=== PATIENT | female | born 1930 | race Caucasian/White ===

== ENCOUNTER 2019-10-10 22:06 | Inpatient (IN) | payer OTHER ==
[~2019-10-10] VITALS: Ht 167.6 cm; Wt 42.6 kg
[2019-10-10 22:15] VITALS: BP 79/42
--- NOTE | 2019-10-10 22:18 | NUR ---
89 YO BIBA FROM [facility] OF "DIAPER FULL OF BLOOD." BOWEL SOUNDS HYPERACTIVE THROUGHOUT. S1S2 HEARD. LUNG SOUNDS CLEAR. RESPIRATIONS ARE EVEN AND UNLABORED. CAP REFILL <3. PERIPHERAL PULSES FELT IN ALL EXTREMETIES. RESPONSIVE BUT UNABLE TO MAKE NEEDS KNOWN. GCS 9. PTS BASELINE IS NONVERBAL PER EMS REPORT. UPON ASSESSMENT, MODERATE BRIGHT RED BLOOD WITH CLOTS FOUND IN DIAPER. PER EMT REPORT NO FEVER, COUGH, SOB. PT PLACED ON MONOTYPE KEYBOARD OPERATOR. BED LOCKED AND IN LOWEST POSITION. SIDE RAILS X2. MED HX: CVA, ALZHEIMERS, DEMENTIA, HYPERLIPIDEMIA, DEPRESSION, ATHEROSCLEROTIC HEART DISEASE, AORTOCORONARY BYPASS GRAFT, LEFT BREAST CANCER, FALIS RX: TRAMADOL, DOK, ACETAMINOPHEN/CODEINE, SEROQUEL, MIRTAZAPINE, DIVALPROEX, MORPHINE SULFATE, IPRATROPIUM/ALBUTERO, MIRALAX, LACTULOSE, ASPIRIN NKA
--- NOTE | 2019-10-10 22:30 | NUR ---
SPOKE TO PTS SON CHRIS ABOUT DNR ORDER. THE PTS SON STATES SHE HAS A DNR ORDER ON FILE AT [facility] WHERE THE PT RESIDES. ERMD MADE AWARE. WILL CALL THE FACILITY TO OBTAIN DNR. CHRIS:
--- NOTE | 2019-10-10 22:34 | NUR ---
LAB AT BEDSIDE.
[2019-10-10] MEDS ORDERED: NACL 0.9% 500 ML IV ONE (22:55)
[2019-10-10 23:01] LABS: BASOPHILS % (AUTO) 0.4 % (0.0-2.0); EOSINOPHILS # (AUTO) 0.1 K/uL (0-0.4); HEMATOCRIT 39.3 % (36-48); HEMOGLOBIN 13.1 g/dL (12.0-16.0); LYMPHOCYTES # (AUTO) 2.2 K/uL (2.5-16.5); LYMPHOCYTES % (AUTO) 24.1 % (20.5-51.1); MEAN CORPUSCULAR HEMOGLOBIN 31 pg (27-31); MEAN CORPUSCULAR HGB CONC 33 g/dL (33-37); MEAN CORPUSCULAR VOLUME 93.7 fL (80-94); MONOCYTES # (AUTO) 0.5 K/uL (0.8-1.0); MONOCYTES % (AUTO) 5.7 % (1.7-9.3); NEUTROPHILS # (AUTO) 6.4 K/uL (1.8-7.7); NEUTROPHILS % (AUTO) 68.8 % (42.2-75.2); PLATELET COUNT (AUTO) 215 K/uL (140-450); RED BLOOD CELL COUNT(AUTO) 4.19 MIL/uL (4.20-5.40); RED CELL DISTRIBUTION WIDTH 13.6 % (11.6-13.7); WHITE BLOOD COUNT (AUTO) 9.3 K/uL (4.8-10.8)
[2019-10-10 23:14] LABS: ALBUMIN 2.9 g/dL (3.4-5.0); ANION GAP 11.3 (8-16); ASPARTATE AMINOTRANSFERASE 22 U/L (15-37); CARBON DIOXIDE 28.8 mmol/L (21-32); CHLORIDE 97 mmol/L (98-107); GLUCOSE 117 mg/dL (74-106); POTASSIUM 4.1 mmol/L (3.5-5.1); PROTHROMBIN TIME 9.9 secs (10.8-13.4); SODIUM SERUM 133 mmol/L (136-145); TOTAL BILIRUBIN 0.3 mg/dL (0.0-1.0); UREA NITROGEN, BLOOD 18 mg/dL (7-18)
--- NOTE | 2019-10-10 23:45 | NUR ---
PT PLACED ON 2L NC FOR DROP IN O2 SATURATION. O2 SAT DROPPED TO 88%. AFTER NC APPLICATION O2 SAT IMPROVED TO 100%.
--- NOTE | 2019-10-10 23:53 | NUR ---
PT RESTING COMFORTABLY IN BED. VISIBLE RISE AND FALL OF CHEST. REPIRATIONS EVEN AND UNLABORED. BED LOCKED AND IN LOWEST POSITION.
--- NOTE | 2019-10-11 01:00 | NUR ---
PT RESTING COMFORTABLY IN BED. NO DISTRESS NOTED. VIABLE RISE AND FALL OF CHEST. VSS.
[2019-10-11] MEDS ORDERED: ACETAMINOPHEN 325 MG TAB PO PRN (01:50)
[2019-10-11] MEDS ORDERED: HYDROcodone/APAP 5/325 MG 1 TAB TAB PO PRN (01:50)
[2019-10-11] MEDS ORDERED: MORPHINE SULFATE 2 MG/ML SYR IVP PRN ×2 (01:50→03:00)
[2019-10-11] MEDS ORDERED: ONDANSETRON 4 MG/2 ML VIAL IM/IVP PRN (01:50)
[2019-10-11] MEDS ORDERED: DOCUSATE SODIUM 100 MG GELCAP PO PRN (01:50)
[2019-10-11 01:58] LABS: HEMATOCRIT 35.7 % (36-48); HEMOGLOBIN 11.9 g/dL (12.0-16.0)
[2019-10-11] MEDS ORDERED: MSCON15 PO (01:59)
[2019-10-11] MEDS ORDERED: ALBU3SOL83 IH (02:01)
[2019-10-11] MEDS ORDERED: QUET25TA PO ×2 (02:02→03:08)
[2019-10-11] MEDS ORDERED: MIRT30TA PO (02:04)
[2019-10-11] MEDS ORDERED: DIVA125E11 PO (02:05)
[2019-10-11] MEDS ORDERED: DOCU100C16 PO (02:15)
[2019-10-11] MEDS ORDERED: ACET-503 PO (02:15)
[2019-10-11] MEDS ORDERED: TRAM50TA1 PO (02:15)
[2019-10-11] MEDS ORDERED: ASPI-1822 PO (02:15)
[2019-10-11] MEDS ORDERED: POLY17PD PO (02:15)
[2019-10-11] MEDS ORDERED: [UNRECOGNIZED DRUG - CODE] RC (02:15)
[2019-10-11] MEDS ORDERED: LACT10SO1 PO (02:15)
--- NOTE | 2019-10-11 02:30 | NUR ---
DURING BREIF CHANGE MODERATE AMOUNT OF BRIGHT RED BLOOD WITH CLOTS FOUND.
[2019-10-11 02:43] LABS: MAGNESIUM 2.1 mg/dL (1.8-2.4); PHOSPHORUS 4.3 mg/dL (2.5-4.9); THYROID STIMULATING HORMONE 4.16 uIU/mL (0.34-3.74)
[2019-10-11 02:45] VITALS: BP 104/61
--- NOTE | 2019-10-11 02:45 | NUR ---
Patient will be admitted to care of [facility]. Admited to [facility]. Will go to room 110B. Belongings list completed. Report to LITZY ANDERSON. RN MADE AWARE OF MODERATE AMOUNT OF BRIGHT RED BLOOD NOTED DURING LAST BREIF CHANGE. TRANSFER OF CARE AT THIS TIME.
--- NOTE | 2019-10-11 02:45 | NUR ---
ADMITTED A 89F FROM ER. CAME BY LAURA DUE TO ACTIVE RECTAL BLEEDING. ON TELE MONITOR . OBSERVATION ONLY. PT IS BEDBOUND. WITH GENERAL WEAKNESS . O22L/NC. SAT 98%. NO S/S OF ANY DISCOMFORT NOR DISTRESS NOTED. WITH OLD SCAB ON THE RT PLANTAR AREA. SACRUM WITH REDNESS. MD TO ORDER CREAM. REPOSITIONED FOR COMFORT. FREQ ROUNDS NEEDED. BED ON LOWEST POSITION. SIDE RAILS UP X2 . CALL LIGHT PLACED WITHIN EASY REACH. WILL FOLLOW UP ADMIT ORDERS.
--- NOTE | 2019-10-11 02:55 | NUR ---
DR. YEPEZ CAME AND SEEN PTVielka CASTILLO SAID TO HOLD THE 2 UNITS PRBC ORDERED FOR NOW.
[2019-10-11] MEDS ORDERED: BISACODYL 10 MG SUPP RC PRN (03:00)
[2019-10-11] MEDS ORDERED: traMADol 50 MG TAB PO PRN (03:00)
[2019-10-11] MEDS ORDERED: ALBUTEROL SULFATE/IPRATROPIU 3 ML SOL IH SCH (03:00)
[2019-10-11] MEDS ORDERED: LORazepam 0.5 MG TAB PO PRN (03:00)
[2019-10-11] MEDS ORDERED: LORA2SOL69 PO (03:08)
[2019-10-11] MEDS ORDERED: BISA-213 RC (03:08)
[2019-10-11] MEDS: NACL 0.9% 1,000 ML IV SCH (03:10)
[2019-10-11] MEDS ORDERED: HYDRAGUARD CREAM TP PRN (03:15)
[2019-10-11 04:15] VITALS: BP 125/53
--- NOTE | 2019-10-11 05:30 | NUR ---
HAD SOME RECTAL BLEEDING IN SMALL AMOUNT. CLEANED AND KEPT DRY.
--- NOTE | 2019-10-11 07:23 | NUR ---
ENDORSED PT IN STABLE CONDITION TO AM NURSE.
--- NOTE | 2019-10-11 07:25 | NUR ---
RECEIVED REPORT FROM REGIONAL BUSINESS DEVELOPMENT MANAGER NURSE, FOR CONTINUITY OF CARE. PT IS LYING IN BED AWAKE AND RESTING, A&OX1. RESPIRATIONS ARE EVEN AND UNLABORED, BREATHING TO 2L NC. SACRAL REDNESS NOTED. TELE MONITOR ATTACHED. REVIEWED PLAN OF CARE WITH PT. SAFETY MEASURES IN PLACE, BED IN LOW POSITION, CALL LIGHT WITHIN REACH. NO DISTRESS NOTED. WILL CONTINUE TO MONITOR.
[2019-10-11 07:40] LABS: BASOPHILS % (AUTO) 0.5 % (0.0-2.0); EOSINOPHILS # (AUTO) 0.1 K/uL (0-0.4); EOSINOPHILS % (AUTO) 0.9 % (0.0-4.0); HEMOGLOBIN 11.9 g/dL (12.0-16.0); LYMPHOCYTES # (AUTO) 2.2 K/uL (2.5-16.5); LYMPHOCYTES % (AUTO) 23.5 % (20.5-51.1); MEAN CORPUSCULAR HEMOGLOBIN 31 pg (27-31); MEAN CORPUSCULAR HGB CONC 33 g/dL (33-37); MEAN CORPUSCULAR VOLUME 93.4 fL (80-94); MONOCYTES # (AUTO) 0.6 K/uL (0.8-1.0); MONOCYTES % (AUTO) 6.6 % (1.7-9.3); NEUTROPHILS # (AUTO) 6.3 K/uL (1.8-7.7); NEUTROPHILS % (AUTO) 68.5 % (42.2-75.2); PLATELET COUNT (AUTO) 204 K/uL (140-450); RED BLOOD CELL COUNT(AUTO) 3.86 MIL/uL (4.20-5.40); WHITE BLOOD COUNT (AUTO) 9.2 K/uL (4.8-10.8)
[2019-10-11 08:00] VITALS: BP 134/83
[2019-10-11] MEDS ORDERED: POLYETHYLENE GLYCOL 17 GM/PKT PO SCH ×2 (08:00→09:00)
[2019-10-11] MEDS ORDERED: ASPIRIN 81 MG TAB.CHEW PO SCH (08:00)
--- NOTE | 2019-10-11 08:45 | NUR ---
ASSISTED DR CHRISTOPHER AT BEDSIDE TO PERFORM OCCULT BLOOD STOOL TEST. PER DR CHRISTOPHER, PT IS TO BE PUT ON A CLEAR LIQUID DIET, NPO AT MIDNIGHT, FOR COLONOSCOPY TOMORROW.
[2019-10-11 08:47] LABS: CHOL/HDL RATIO 4.3 (1-4.5)
[2019-10-11] MEDS ORDERED: SENNA 8.6 MG TAB PO SCH (09:00)
[2019-10-11] MEDS ORDERED: LACTULOSE 20 GM/30 ML UDC PO SCH ×3 (09:00→10:56)
[2019-10-11] MEDS ORDERED: MAGNESIUM CITRATE 300 ML BTL PO SCH ×2 (09:00→21:00)
[2019-10-11 09:06] LABS: ANION GAP 11.1 (8-16); CARBON DIOXIDE 29.5 mmol/L (21-32); CHLORIDE 103 mmol/L (98-107); CREATININE 0.8 mg/dL (0.6-1.3); GLUCOSE 94 mg/dL (74-106); POTASSIUM 4.6 mmol/L (3.5-5.1); SODIUM SERUM 139 mmol/L (136-145); UREA NITROGEN, BLOOD 15 mg/dL (7-18)
--- NOTE | 2019-10-11 09:09 | NUR ---
PATIENT HAS BEEN SCREENED AND CATEGORIZED HIGH NUTRITION RISK. PATIENT WILL BE SEEN WITHIN 1-2 DAYS OF ADMISSION. 10/11/19-10/12/[address]
--- NOTE | 2019-10-11 10:05 | NUR ---
Park Warden Note: Basic Screen: Yes High Risk DC Screen [place]: CHRIS LOPEZ Home Relationship: SON/POA Pre-Admission Living Arrangements: Other Other: [facility] Prior ADL Total/Dependent Current Home Health Name/Tel: N/A Current DME/02 Name/Tel: [facility] Current Hospice Name/Tel: [facility] Current Dialysis Name/Tel: N/A Healthcare Decision Maker: Next of Kin Other: CHRIS LOPEZ Advance Directive No Physician Orders for Life Sustaining Treatment Form No Patient/Family Have Educational Needs No Information Taught: Advance Directive Discipline: Case Mgt/Social Svcs Tentative Discharge Plan/Destination: No Needs Identified Will require assistance post discharge: No Referred to Plaster Helper: No Tentative Discharge Plan Summary: Patient is an 89-year-old female admitted for gastro intestinal bleed. Patient has PMHX of CVA, dementia, alzheimer's HLD, and CAD. Patient was admitted from [facility]. SHEA Chaidez from [facility] [phone]. Per Kaylynn, patient has been a resident at the facility for six years. Kaylynn stated that patient's family is not involved in her care, although they do get frequent reports given to them. Patient's POA is son Chris Lopez. Kaylynn stated that patient is not alert/oriented at baseline and is limited to yes/no answers. Kaylynn stated that patient's dementia is advanced and requires total assistance with ADLs. Kaylynn reported that patient is nonverbal and inquired about status of patient. SHEA provided patient nurses station's phone number and SAMUEL Chahal's contact information for medical questions asked. Tentative discharge plan is for patient to return to [facility]. No further needs identified. Signature: MARIBEL Urbano Date: Oct 11, 2019 Time: 10:02
[2019-10-11] MEDS ORDERED: ALBUTEROL SULFATE/IPRATROPIU 3 ML SOL IH PRN (10:55)
[2019-10-11 12:00] VITALS: BP 128/69
[2019-10-11] MEDS: DIVALPROEX SPRINKLES 125 MG CAPDR PO SCH ×2 (12:21→20:19)
[2019-10-11] MEDS: PANTOPRAZOLE 40 MG INJ VIAL IVP SCH (12:26)
[2019-10-11] MEDS: QUEtiapine FUMARATE 25 MG TAB PO SCH ×2 (12:28→20:19)
[2019-10-11] MEDS: HYDRAGUARD CREAM TP SCH (13:00)
[2019-10-11 13:21] LABS: BASOPHILS % (AUTO) 0.3 % (0.0-2.0); EOSINOPHILS # (AUTO) 0.1 K/uL (0-0.4); EOSINOPHILS % (AUTO) 0.8 % (0.0-4.0); HEMATOCRIT 37.9 % (36-48); HEMOGLOBIN 12.7 g/dL (12.0-16.0); LYMPHOCYTES # (AUTO) 1.8 K/uL (2.5-16.5); LYMPHOCYTES % (AUTO) 19.5 % (20.5-51.1); MEAN CORPUSCULAR HEMOGLOBIN 31 pg (27-31); MEAN CORPUSCULAR HGB CONC 34 g/dL (33-37); MEAN CORPUSCULAR VOLUME 93.6 fL (80-94); MONOCYTES # (AUTO) 0.6 K/uL (0.8-1.0); MONOCYTES % (AUTO) 6.6 % (1.7-9.3); NEUTROPHILS # (AUTO) 6.9 K/uL (1.8-7.7); NEUTROPHILS % (AUTO) 72.8 % (42.2-75.2); PLATELET COUNT (AUTO) 208 K/uL (140-450); RED BLOOD CELL COUNT(AUTO) 4.05 MIL/uL (4.20-5.40); RED CELL DISTRIBUTION WIDTH 13.7 % (11.6-13.7); WHITE BLOOD COUNT (AUTO) 9.5 K/uL (4.8-10.8)
--- NOTE | 2019-10-11 13:27 | NUR ---
10/11/19 RD INITIAL ASSESSMENT COMPLETED PLEASE REFER TO NUTRITION ASSESSMENT UNDER CARE ACTIVITY FOR ESTIMATED NUTRITIONAL NEEDS. 1. CONTINUE CLEAR LIQUID DIET WITH ENSURE CLEAR TID 2. RECOMMEND SWALLOW EVALUATION FOR HISTORY OF DYSPHAGIA 3. ADVANCE DIET PER EXTERNAL RELATIONS DIRECTOR RECOMMENDATIONS WHEN PATIENT IS MEDICALLY CLEARED 4. RECOMMEND ENSURE TID 5. RD TO FOLLOW-UP 2-3 DAYS, HIGH RISK DOMINIQUE CALVO RD
[2019-10-11 16:00] VITALS: BP 122/72
--- NOTE | 2019-10-11 16:26 | NUR ---
ST CLARIFICATION NOTE Pt HAS FUNCTIONAL SWALLOW FOR MSFC FOOD AND THIN LIQUIDS W/O DIFFICULTY OR OVERT S/S OF ASPIRATION OR PENETRATION NOTED. AP TRANSFER AND SWALLOW RESPONSE WAS TIMELY W/ FULL LARYNGEAL ELEVATION AND EXCURSION. MILD RESIDUAL ON RIGHT NOTED. ABLE TO CLEAR W/ MULTIPLE SWALLOWS AND ALTERNATION OF FOOD/LIQUIDS. DIFFICULTY W/ MASTICATION OF MSC D/T DECREASED DENTITION. REC MSFC/THIN DIET, ASPIRATION PRECAUTIONS, ORAL CARE, AND FEEDER. ADDITIONAL ST FOR SWALLOW NOT INDICATED AT THIS TIME.
[2019-10-11] MEDS: LACTULOSE 20 GM/30 ML UDC PO SCH ×2 (17:00→20:18)
--- NOTE | 2019-10-11 19:25 | NUR ---
ENDORSED TO SUPPLY CHAIN DESIGN MANAGER NURSE FOR CONTINUITY OF CARE. PT IS IN STABLE CONDITION.
--- NOTE | 2019-10-11 19:26 | NUR ---
RECEIVED PT IN STABLE CONDITION FROM AM NURSE. ON TELE MONITOR. BEDREST. WITH NO S/S OF ANY DISTRESS NOR DISCOMFORT NOTED. WITH IVF INFUSING WELL ON THE RT HAND# 22. CLEAR AND PATENT. .PLAN OF CARE DISCUSSED BUT PT HAS DEMENTIA. NEED REINFORCEMENT. BED ON LOW POSITION. FREQ ROUNDS NEEDED. SIDE RAILS UP X2. CALL LIGHT WITHIN REACH AND BED ALARM ON. WILL CONTINUE TO MONITOR.
[2019-10-11 20:00] VITALS: BP 115/71
[2019-10-11] MEDS ORDERED: CRUSHER, PILL MC ONE (20:15)
--- NOTE | 2019-10-11 20:16 | NUR ---
TEMP 100.5 [id number]. COOLING MEASURES DONE. TYLENOL 650 MG PO GIVEN. WILL CONTINUE TO MONITOR.
[2019-10-11] MEDS: POLYETHYLENE GLYCOL 17 GM/PKT PO SCH (20:18)
[2019-10-11] MEDS: SENNA 8.6 MG TAB PO SCH (20:18)
--- NOTE | 2019-10-11 20:30 | NUR ---
PT ABLE TO TAKE SOME OF THE STOOL SOFTENER ORDERED. STILL WORKING ON MIRALAX AND CITROMA.
[2019-10-11] MEDS ORDERED: MIRTAZAPINE 15 MG TAB PO SCH (21:00)
--- NOTE | 2019-10-11 21:30 | NUR ---
TEMP RECHECKED RESULT 98.6
--- NOTE | 2019-10-11 23:00 | NUR ---
PT SACRAL AREA WITH INCONTINENT DERMATITIS AND BOTH BUTTOCKS WITH OPEN WOUND. WILL TAKE PICTURE .BUT NO COMPARISON WHEN PT ADMITTED 10/11/19 FROM ER. ER NURSE SAID SHE TOOK PICTURE BUT NO PICTURE FOUND . WILL FOLLOW UP .
--- NOTE | 2019-10-11 23:30 | NUR ---
PT SLOWLY FINISHED CITROMA PO . TOLERATED WELL. PT TO BE NPO AFTER MN FOR COLONOSCOPY IN AM.
[2019-10-12] VITALS: BP 123/64
[2019-10-12] MEDS: HYDRAGUARD CREAM TP SCH ×2 (00:17→12:53)
--- NOTE | 2019-10-12 00:30 | NUR ---
REPOSITIONED FOR COMFORT. MOUTH CARE DONE.
--- NOTE | 2019-10-12 01:30 | NUR ---
PT HAD X2 LOOSE BM , STILL WITH BLOOD. CLEANED AND KEPT DRY,APPLIED HYDRA GUARD ON SACRAL AND BUTTOCKS INCONTINENT DERMATITIS. LT BUTTOCKS ALREADY OPEN SKIN.
[2019-10-12] MEDS: NACL 0.9% 1,000 ML IV SCH (01:47)
--- NOTE | 2019-10-12 03:20 | NUR ---
MADE ROUNDS. VITAL SIGNS TAKEN. STABLE.
[2019-10-12 04:05] VITALS: BP 121/51
[2019-10-12] MEDS ORDERED: Z-GUARD PASTE TP PRN (05:30)
--- NOTE | 2019-10-12 05:30 | NUR ---
TOOK PICTURE OF SACRAL AND BUTTOCKS INCONTINENT DERMATITIS/OPEN WOUND. SHOWED TO DR. OCONNOR. ORDERED Z GUARD AND WOUND CARE CONSULT.
--- NOTE | 2019-10-12 06:21 | NUR ---
STOOL OUTPUT STILL DIRTY. PAGED DR. JERONIMO.WAITING FOR CALL BACK.
--- NOTE | 2019-10-12 07:05 | NUR ---
STILL WAITING FOR DR. Jama NEWBY TO CALLBACK.AND THEN ENDORSED PT IN STABLE CONDITION TO AM NURSE FOR CONTINUITY OF CARE.
--- NOTE | 2019-10-12 07:10 | NUR ---
RECEIVED BEDSIDE REPORT FROM NIGHTSHIFT NURSE. PT RESTING IN BED. FLACC 0. RESPIRATIONS EVEN AND UNLABORED WITH NO SOB OR RESPIRATORY DISTRESS. SKIN WARM AND DRY TO TOUCH. IV SITE IN RIGHT HAND 22G IS CLEAN, DRY, AND INTACT. SAFETY MEASURES IN PLACE. WILL CONTINUE TO MONITOR
[2019-10-12 07:35] LABS: BASOPHILS % (AUTO) 0.4 % (0.0-2.0); EOSINOPHILS # (AUTO) 0.1 K/uL (0-0.4); EOSINOPHILS % (AUTO) 0.9 % (0.0-4.0); HEMATOCRIT 30.1 % (36-48); LYMPHOCYTES # (AUTO) 2.4 K/uL (2.5-16.5); LYMPHOCYTES % (AUTO) 25.8 % (20.5-51.1); MEAN CORPUSCULAR HEMOGLOBIN 31 pg (27-31); MEAN CORPUSCULAR HGB CONC 33 g/dL (33-37); MEAN CORPUSCULAR VOLUME 93.4 fL (80-94); MONOCYTES # (AUTO) 0.7 K/uL (0.8-1.0); MONOCYTES % (AUTO) 7.6 % (1.7-9.3); NEUTROPHILS % (AUTO) 65.3 % (42.2-75.2); PLATELET COUNT (AUTO) 179 K/uL (140-450); RED BLOOD CELL COUNT(AUTO) 3.22 MIL/uL (4.20-5.40); WHITE BLOOD COUNT (AUTO) 9.3 K/uL (4.8-10.8)
[2019-10-12 08:00] VITALS: BP 112/56
[2019-10-12 08:05] LABS: MAGNESIUM 2.9 mg/dL (1.8-2.4)
[2019-10-12 08:10] LABS: ANION GAP 11.4 (8-16); CARBON DIOXIDE 26.9 mmol/L (21-32); CHLORIDE 107 mmol/L (98-107); CREATININE 0.8 mg/dL (0.6-1.3); GLUCOSE 100 mg/dL (74-106); POTASSIUM 3.3 mmol/L (3.5-5.1); SODIUM SERUM 142 mmol/L (136-145); UREA NITROGEN, BLOOD 13 mg/dL (7-18)
[2019-10-12] MEDS ORDERED: fentaNYL 0.05 MG/ML VIAL ONE (08:40)
[2019-10-12] MEDS ORDERED: diphenhydrAMINE 50 MG/ML VIAL ONE (08:40)
[2019-10-12] MEDS ORDERED: MIDAZOLAM 2 MG/2 ML VIAL ONE (08:41)
[2019-10-12] MEDS: PANTOPRAZOLE 40 MG INJ VIAL IVP SCH (09:00)
[2019-10-12] MEDS: QUEtiapine FUMARATE 25 MG TAB PO SCH (09:00)
[2019-10-12] MEDS: POLYETHYLENE GLYCOL 17 GM/PKT PO SCH (09:00)
[2019-10-12] MEDS: SENNA 8.6 MG TAB PO SCH (09:00)
[2019-10-12] MEDS: DIVALPROEX SPRINKLES 125 MG CAPDR PO SCH (09:00)
[2019-10-12] MEDS: LACTULOSE 20 GM/30 ML UDC PO SCH (09:00)
--- NOTE | 2019-10-12 09:00 | NUR ---
OR CAME AND TOOK PATIENT TO SURGERY. PRE-OP CHECKLIST IS COMPLETE. SAFETY MEASURES IN PLACE. WILL CONTINUE TO MONITOR
--- NOTE | 2019-10-12 09:44 | NUR ---
RECEIVED CALL FROM CHEMISTRY THAT PT IS POSITIVE FOR MRSA IN WOUND. RESIDENT DR. BLOUNT IS AWARE. SAFETY MEASURES IN PLACE. WILL CONTINUE TO MONITOR
[2019-10-12] MEDS ORDERED: LACTULOSE 20 GM/30 ML UDC PO SCH (09:55)
[2019-10-12] MEDS ORDERED: DOCUSATE SODIUM 100 MG GELCAP PO SCH (09:55)
--- NOTE | 2019-10-12 10:00 | NUR ---
PT RETURNED BACK FROM SURGERY. REPORT GIVEN AT BEDSIDE. SAFETY MEASURES IN PLACE. WILL CONTINUE TO MONITOR
[2019-10-12] MEDS ORDERED: MIDAZOLAM 2 MG/2 ML VIAL IVP ONE (10:20)
[2019-10-12] MEDS ORDERED: fentaNYL 0.05 MG/ML VIAL IVP ONE (10:20)
[2019-10-12] MEDS ORDERED: NACL 0.9% 1,000 ML IV SCH (11:05)
--- NOTE | 2019-10-12 11:12 | NUR ---
ADMINISTERED SCHED IVF PRESCRIBED PER MD ORDER. . PT TOLERATED WELL. MEDICATION EDUCATION PERFORMED. PT UNABLE TO VERBALIZE UNDERSTANDING. SAFETY MEASURES IN PLACE. WILL CONTINUE TO MONITOR
--- NOTE | 2019-10-12 11:35 | NUR ---
DC [age] YRS OLD FEMALE PATIENT WAS ADMITTED FROM SNF AT [facility] WITH A DX OF GI BLEEDING. PT HAS A HX OF CVA, ALZHEIMER'S , DEMENTIA AND CAD S/P CABG . PT NON-VERBAL AND BEDBOUND AT BASE-LINE. CXR NO ACUTE CARDIOPULMONARY DISEASE, ABD X-RAY SHOWED NONSPECIFIC BOWEL GAS PATTERN. CONSULTED GI-WITH DR NEWBY FOR POSSIBLE COLONOSCOPY . DC PLAN TO GO BACK TO ED [facility] WITH HOSPICE. CM TO FOLLOW Addendum: 10/12/19 at 1211 by Fela Graff CM RECEIVED AN ORDER FOR HOSPICE EVAL. CONTACTED PATIENT'S SON CHRIS LOPEZ AT [phone] REGARDING DC PLAN AND IS IN AGREEMENT. HE STATED IT IS OK WITH HIM TO CONTINUE WITH THE HOSPICE AGENCY PRIOR TO ADMISSION. HE STATED HE DOES NOT REMEMBER THE NAME BUT THE FACILITY WILL KNOW. CONTACTED [facility], ABLE TO SPEAK TO [facility] GEOSCIENCE PROFESSOR. SHE STATED PATIENT WAS WITH [facility] [phone] PRIOR TO ADMISSION. CONTACTED [facility], ABLE TO SPEAK TO REAL HAGEN. HE STATED THEY ARE ABLE TO CONTINUE THE SERVICES. CLINICALS SENT TO [phone]. WILL FOLLOW UP. Addendum: 10/12/19 at 1405 by Fela Graff CM PER REAL HAGEN FROM [facility], COLLECTION CARD CLERK WILL BE AT [phone]. CONTACTED [facility], ABLE TO SPEAK TO KALEB MCGHEE. SHE STATED THEY ARE REQUESTING A NOTES STATING THAT PATIENT WAS NOT TESTED FOR COVID DUE TO ASYMPTOMATIC. DR. CHRISTOPHER MADE AWARE. NOTE FAX TO [facility] AT [phone]. RECEIVED A CALL FROM KALEB OF [facility], CONFIRMING THAT THEY HAVE RECEIVED THE FORM AND WE ARE GOOD TO DISCHARGE THE PATIENT BACK. PRIMARY LITZY FABIAN AND DR. CHRISTOPHER MADE AWARE. Addendum: 10/12/19 at 1528 by Fela Graff CM [facility] [facility] IS PICKING UP THE PATIENT BETWEEN [phone].
[2019-10-12 12:00] VITALS: BP 103/57
[2019-10-12] MEDS ORDERED: POTASSIUM CHLORIDE 40 MEQ, LIDOCAINE MPF 1% 25 MG in NACL 0.9% 250 ML IV SCH (12:00)
--- NOTE | 2019-10-12 12:06 | NUR ---
ADMINISTERED SCHED MED PRESCRIBED PER MD ORDER. PT TOLERATED WELL. MEDICATION EDUCATION PERFORMED. PT UNABLE TO VERBALIZE UNDERSTANDING. SAFETY MEASURES IN PLACE. WILL CONTINUE TO MONITOR
--- NOTE | 2019-10-12 12:54 | NUR ---
ADMINISTERED SCHED MED PRESCRIBED PER MD ORDER. PT TOLERATED WELL. MEDICATION EDUCATION PERFORMED. PT UNABLE TO VERBALIZE UNDERSTANDING. SAFETY MEASURES IN PLACE. WILL CONTINUE TO MONITOR
[2019-10-12] MEDS ORDERED: METPCK PO (12:57)
[2019-10-12] MEDS ORDERED: LACT10SO1 PO (12:57)
--- NOTE | 2019-10-12 13:55 | NUR ---
REPORT GIVEN TO EUFEMIA MANUEL. KALEB VERBALIZED UNDERSTANDING AND READ BACK INFORMATION. SAFETY MEASURES IN PLACE. WILL CONTINUE TO MONITOR
[2019-10-12 14:20] VITALS: BP 103/57
--- NOTE | 2019-10-12 15:15 | NUR ---
[facility] IS HERE. REPORT GIVEN AT BEDSIDE. PT APHASIC AND UNABLE TO SIGN FOR HERSELF. INTACT IV CANNULA AND ID BAND REMOVED. TELE MONITOR REMOVED. PT CHANGED INTO ORANGE GOWN AND ALL OF HER BELONGINGS HAVE BEEN GATHERED. PT [facility] TO [facility]. SAFETY MEASURES IN PLACE. PT IS STABLE
[2019-10-13] MEDS ORDERED: PSYLLIUM 12.2 GM/PKT PO SCH (09:00)
--- NOTE | 2019-10-15 08:23 | NUR ---
Wound consult not done, pt. discharged.
== END 2019-10-12 13:15 | disposition hospice, inpatient (51) | DRG 393 ==
LOC: MED 22:06 → MTU 10-11 01:53 → OBSVTOIN 10-11 13:22
PROVIDERS: ADMIT General Practice; ATTEND General Practice
PROC: 0DJD8ZZ Inspection of Lower Intestinal Tract, Via Natural or Artificial Opening Endoscopic (ICD-10-PCS; principal; 2019-10-12 09:00)
DX: K62.6 Ulcer of anus and rectum (principal); E43 Unspecified severe protein-calorie malnutrition; K57.31 Diverticulosis of large intestine without perforation or abscess with bleeding; Z68.1 Body mass index [BMI] 19.9 or less, adult; E87.1 Hypo-osmolality and hyponatremia; F02.80 Dementia in other diseases classified elsewhere, unspecified severity, without behavioral disturbance, psychotic disturbance, mood disturbance, and anxiety; I25.10 Atherosclerotic heart disease of native coronary artery without angina pectoris; G30.9 Alzheimer's disease, unspecified; I10 Essential (primary) hypertension; D64.9 Anemia, unspecified; K56.41 Fecal impaction; Z66 Do not resuscitate; F39 Unspecified mood [affective] disorder; E02 Subclinical iodine-deficiency hypothyroidism; E87.6 Hypokalemia; Z85.3 Personal history of malignant neoplasm of breast; Z86.73 Personal history of transient ischemic attack (TIA), and cerebral infarction without residual deficits; Z95.1 Presence of aortocoronary bypass graft; Z74.01 Bed confinement status
CPT/HCPCS: 45378; 99285; G0378; 36415; 71045; 74018; 80048; 80053; 82272; 83036; 83690; 83735; 83880; 84100; 84443; 85018; 85025; 85610; 85730; 86886; 86900; 86901; 86920; 87081; 92610; 93005; C9113; J1200; J2001; J2250; J3010; J3480; J7030; Q0092